=== PATIENT | female | born 1990 | race Caucasian/White ===

== ENCOUNTER 2016-12-01 04:02 | Inpatient (IN) | payer BC ==
[2016-12-01] VITALS (15 sets, daily range): BP systolic 73–117; BP diastolic 51–74; PULSE 101–116; RESP 16–25; TEMP 98.9; Ht 157.5 cm; Wt 70.5 kg
[~2016-12-01] VITALS: Ht 157.5 cm; Wt 70.5 kg
[2016-12-01] MEDS ORDERED: ONDANSETRON (ODT) 4 MG TAB ODT STA (04:19)
--- NOTE | 2016-12-01 04:29 | ERD ---
ER Documentation Chief Complaint Date/Time DATE: 12/01/16 TIME: 04:28 Chief Complaint Heroin Withdrawal HPI Cancel this dictation it was started in error ROS All systems reviewed and are negative except as per history of present illness. Medications Home Meds Active Scripts Ondansetron (Zofran Odt) 4 Mg Tab.rapdis, 4 MG PO Q6, #14 Prov:EULALIO DE PAZ DO 12/01/16 Allergies Allergies: Coded Allergies: No Known Allergy (Unverified , 12/01/16) Physical Exam Vitals Vital Signs Date Time Temp Pulse Resp B/P Pulse Ox O2 Delivery O2 Flow Rate FiO2 12/01/16 04:28 98.3 100 18 141/78 99 Room Air 12/01/16 04:08 98.3 103 18 141/78 97 Results 24 hrs Laboratory Tests Test 12/01/16 04:37 12/01/16 05:20 Bedside Glucose 276mg/dL Bedside Urine pH (LAB) 5.5 Bedside Urine Protein (LAB) 2+ Bedside Urine Glucose (UA) 0.1% Bedside Urine Ketones (LAB) 4+ Bedside Urine Blood Negative Bedside Urine Nitrite (LAB) Negative Bedside Urine Leukocyte Esterase (L Negative Current Medications Medications (Trade) Dose Ordered Sig/Fernando Route PRN Reason Start Time Stop Time Status Last Admin Dose Admin Trimethobenzamide HCl (Tigan) 200 mg ONCE ONCE IM 12/01/16 04:30 12/01/16 04:31 DC 12/01/16 04:25 Ondansetron HCl 4 mg 4 mg ONCE STAT ODT 12/01/16 04:19 12/01/16 04:20 DC 12/01/16 04:25 Sodium Chloride (NS) 1,000 ml @ 1,000 mls/hr Q1H STAT IV 12/01/16 05:58 12/01/16 06:57 12/01/16 06:30 Procedures/MDM Cancel this dictation it was started in error EULALIO DE PAZ DO Dec 01, 2016 04:29
[2016-12-01] MEDS ORDERED: TRIMETHOBENZAMIDE 100 MG/ML VIAL IM ONE (04:30)
[2016-12-01 05:17] LABS: URINE BLOOD (Dip) POC Negative (NEGATIVE)
[2016-12-01] MEDS ORDERED: ONDA4TAB11 PO (05:37)
[2016-12-01] MEDS ORDERED: SOD CHLORIDE 0.9% 1,000 ML IV STA ×2 (05:58→07:28)
[2016-12-01 06:36] LABS: ADD SCAN DIFF NO
[2016-12-01 06:39] LABS: BASOPHILS % 0.1 % (0.0-2.0); HEMATOCRIT 43.4 % (37.0-47.0); HEMOGLOBIN 14.4 g/dl (12.0-16.0); LYMPHOCYTES # 0.9 10^3/ul (0.8-2.9); LYMPHOCYTES % 12.1 % (15.0-51.0); MEAN CORPUSCULAR HEMOGLOBIN 30.3 pg (29.0-33.0); MEAN CORPUSCULAR HGB CONC 33.2 g/dl (32.0-37.0); MEAN CORPUSCULAR VOLUME 91.4 fl (82.0-101.0); MEAN PLATELET VOLUME 9.2 fl (7.4-10.4); MONOCYTE # 0.4 10^3/ul (0.3-0.9); MONOCYTES % 5.1 % (0.0-11.0); NEUTROPHIL # 5.8 10^3/ul (1.6-7.5); NEUTROPHILS % 81.3 % (39.0-77.0); PLATELET COUNT 253 10^3/UL (140-415); RED BLOOD COUNT 4.75 10^6/ul (4.20-5.40); RED CELL DISTRIBUTION WIDTH 14.9 % (11.5-14.5); WHITE BLOOD COUNT 7.1 10^3/ul (4.8-10.8)
[2016-12-01] MEDS ORDERED: METOCLOPRAMIDE 10 MG INJ IV ONE (07:00)
[2016-12-01 07:08] LABS: ALBUMIN 5.7 g/dl (3.3-4.9); ALBUMIN/GLOBULIN RATIO 1.46; BILIRUBIN,INDIRECT 0.4 mg/dl (0-1.1); BILIRUBIN,TOTAL 0.4 mg/dl (0.2-1.3); CALCIUM 10.3 mg/dl (8.4-10.2); CREATININE 0.88 mg/dl (0.44-1.00); POTASSIUM 4.9 mmol/L (3.5-5.1); TOTAL PROTEIN 9.6 g/dl (6.1-8.1)
[2016-12-01 07:17] LABS: ADD UMIC YES; UR ASCORBIC ACID NEGATIVE (NEGATIVE); UR BACTERIA FEW /HPF (NONE SEEN); UR BILIRUBIN (Dip) NEGATIVE (NEGATIVE); UR BLOOD (Dip) NEGATIVE (NEGATIVE); UR CLARITY SLIGHTLY CLOUDY (CLEAR); UR COLOR YELLOW (YELLOW); UR GLUCOSE (Dip) 3+ mg/dL (NEGATIVE); UR KETONES (Dip) 2+ mg/dL (NEGATIVE); UR LEUKOCYTE ESTERASE (Dip) NEGATIVE Leu/ul (NEGATIVE); UR NITRITE (Dip) NEGATIVE (NEGATIVE); UR RBC 1 /HPF (0-5); UR SPECIFIC GRAVITY (Dip) 1.018 (1.003-1.030); UR TOTAL PROTEIN (Dip) 2+ mg/dl (NEGATIVE); UR UROBILINOGEN (Dip) NEGATIVE (NEGATIVE)
[2016-12-01] MEDS ORDERED: INSULIN HUMAN REGULAR 100 UNIT in SOD CHLORIDE 0.9% 99 ML IV STA (07:28)
[2016-12-01] MEDS ORDERED: MAGNESIUM SULFATE 2 GM/50 ML 50 ML IVPB ONE (07:30)
--- NOTE | 2016-12-01 07:53 | ERA ---
ER Documentation Chief Complaint Date/Time DATE: 12/01/16 TIME: 07:49 Chief Complaint Heroin Withdrawal HPI Patient is a 26-year-old female who presents with gradual onset, intermittent vomiting for 1-1/2 days. She states that she is in detox from heroin, and has had withdrawal symptoms for the last day and a half since she stopped using heroin. She is in an inpatient facility currently. She reports feeling subjective fevers. She denies diarrhea. She denies cough, dysuria. She does not recall her last menstrual period. The patient is a type I diabetic. She states she has been taking her insulin. ROS All systems reviewed and are negative except as per history of present illness. Medications Home Meds Active Scripts Ondansetron (Zofran Odt) 4 Mg Tab.rapdis, 4 MG PO Q6, #14 Prov:EULALIO DE PAZ DO 12/01/16 Reported Medications Buprenorphine Hcl-Naloxone Hcl (Suboxone SL) 8-2 Mg Film, 1 FILM SL DAILY, FILM 12/01/16 Quetiapine Fumarate* (Seroquel*) 50 Mg Tablet, 50 MG PO TID, TAB 12/01/16 Clonidine Hcl* (Clonidine Hcl*) 0.2 Mg Tablet, 0.2 MG PO TID, TAB 12/01/16 Allergies Allergies: Coded Allergies: No Known Allergy (Unverified , 12/01/16) PMhx/Soc Past medical history: Diabetes mellitus Past surgical history: Abscess I&D Social history: Uses IV heroin and skin pops, denies other drugs or alcohol. Medical and Surgical Hx: pt denies Surgical Hx History of Surgery: No Hx Miscellaneous Medical Probl: Yes (DM) Hx Alcohol Use: Yes Hx Substance Use: Yes (HEROIN) Hx Tobacco Use: Yes Smoking Status: Current every day smoker FmHx Family History: No coronary disease, No diabetes Physical Exam Vitals Vital Signs Date Time Temp Pulse Resp B/P Pulse Ox O2 Delivery O2 Flow Rate FiO2 12/01/16 12:00 107 19 140/94 100 Room Air 12/01/16 11:00 115 20 136/79 100 Room Air 12/01/16 07:42 104 18 122/75 99 Room Air 12/01/16 04:28 98.3 100 18 141/78 99 Room Air 12/01/16 04:08 98.3 103 18 141/78 97 Physical Exam Const: Alert, appears uncomfortable Head: Atraumatic Eyes: Normal Conjunctiva, no pallor, no icterus ENT: Normal External Ears, Nose and Mouth. Tacky mucous membranes Neck: Full range of motion. No meningismus. Resp: Clear to auscultation bilaterally, no wheezes, no rales Cardio: Regular rate and rhythm, no murmurs Abd: Soft, non tender, non distended. Skin: No petechiae or rashes Back: No midline or flank tenderness Ext: No cyanosis, or edema Neur: Awake and alert, cranial nerves II through XII intact bilaterally, moves and feels 4 extremities appropriately Psych: Normal Mood and Affect, poorly communicative, slightly agitated Result Diagram: 12/01/16 0605 12/01/16 1211 Results 24 hrs Laboratory Tests Test 12/01/16 04:37 12/01/16 05:20 12/01/16 06:00 12/01/16 06:05 Bedside Glucose 276mg/dL Bedside Urine pH (LAB) 5.5 Bedside Urine Protein (LAB) 2+ Bedside Urine Glucose (UA) 0.1% Bedside Urine Ketones (LAB) 4+ Bedside Urine Blood Negative Bedside Urine Nitrite (LAB) Negative Bedside Urine Leukocyte Esterase (L Negative Urine Color YELLOW Urine Clarity SLIGHTLY CLOUDY Urine pH 5.0 Urine Specific [place] 1.018 Urine Ketones 2+mg/dL Urine Nitrite NEGATIVEmg/dL Urine Bilirubin NEGATIVEmg/dL Urine Urobilinogen NEGATIVEmg/dL Urine Leukocyte Esterase NEGATIVELeu/ul Urine Microscopic RBC 1/HPF Urine Microscopic WBC 3/HPF Urine Bacteria FEW/HPF Urine Hemoglobin NEGATIVEmg/dL Urine Glucose 3+mg/dL Urine Total Protein 2+mg/dl Urine Opiates Screen Positive Urine Barbiturates Positive Urine Amphetamines Screen Negative Urine Benzodiazepines Screen Negative Urine Cocaine Screen Negative Urine Cannabinoids Negative White Blood Count 7.110^3/ul Red Blood Count 4.7510^6/ul Hemoglobin 14.4g/dl Hematocrit 43.4% Mean Corpuscular Volume 91.4fl Mean Corpuscular Hemoglobin 30.3pg Mean Corpuscular Hemoglobin Concent 33.2g/dl Red Cell Distribution Width 14.9% Platelet Count 86866^3/UL Mean Platelet Volume 9.2fl Neutrophils % 81.3% Lymphocytes % 12.1% Monocytes % 5.1% Eosinophils % 0.0% Basophils % 0.1% Nucleated Red Blood Cells % 0.0/100WBC Neutrophils # 5.810^3/ul Lymphocytes # 0.910^3/ul Monocytes # 0.410^3/ul Eosinophils # 0.010^3/ul Basophils # 0.010^3/ul Nucleated Red Blood Cells # 0.010^3/ul Clumped Platelets 2+ Giant Platelets RARE Urine Test NEGATIVE Sodium Level 141mmol/L Potassium Level 4.9mmol/L Chloride Level 96mmol/L Carbon Dioxide Level 18mmol/L Anion Gap 32 Blood Urea Nitrogen 27mg/dl Creatinine 0.88mg/dl Glucose Level 347mg/dl Hemoglobin A1c 8.7% Lactic Acid Level 2.2mmol/L Calcium Level 10.3mg/dl Phosphorus Level 4.5mg/dl Total Bilirubin 0.4mg/dl Direct Bilirubin 0.00mg/dl Indirect Bilirubin 0.4mg/dl Acetone Level (Chemistry) Aspartate Amino Transf (AST/SGOT) 40IU/L Alanine Aminotransferase (ALT/SGPT) 44IU/L Alkaline Phosphatase 204IU/L Total Protein 9.6g/dl Albumin 5.7g/dl Globulin 3.90g/dl Albumin/Globulin Ratio 1.46 Lipase 23U/L Test 12/01/16 10:17 12/01/16 12:11 12/01/16 12:39 12/01/16 13:35 Bedside Glucose 379mg/dL 322mg/dL 270mg/dL Sodium Level 141mmol/L Potassium Level 6.0mmol/L Chloride Level 103mmol/L Carbon Dioxide Level 12mmol/L Anion Gap 32 Blood Urea Nitrogen 24mg/dl Creatinine 0.83mg/dl Glucose Level 365mg/dl Calcium Level 9.3mg/dl Current Medications Medications (Trade) Dose Ordered Sig/Fernando Route PRN Reason Start Time Stop Time Status Last Admin Dose Admin Trimethobenzamide HCl (Tigan) 200 mg ONCE ONCE IM 12/01/16 04:30 12/01/16 04:31 DC 12/01/16 04:25 Ondansetron HCl 4 mg 4 mg ONCE STAT ODT 12/01/16 04:19 12/01/16 04:20 DC 12/01/16 04:25 Sodium Chloride (NS) 1,000 ml @ 1,000 mls/hr Q1H STAT IV 12/01/16 05:58 12/01/16 06:57 DC 12/01/16 06:30 Metoclopramide HCl 10 mg 10 mg ONCE ONCE IV 12/01/16 07:00 12/01/16 07:01 DC 12/01/16 06:49 Sodium Chloride 1,000 ml @ 1,000 mls/hr Q1H STAT IV 12/01/16 07:28 12/01/16 08:27 DC 12/01/16 09:02 Insulin Human Regular 100 unit/ Sodium Chloride 100 ml @ 0 mls/hr TITRATE STAT IV 12/01/16 07:28 12/01/16 07:30 DC 12/01/16 10:24 Magnesium Sulfate (Magnesium Sulfate 2 Gm/50 ml) 50 ml @ 25 mls/hr ONCE ONCE IVPB 12/01/16 07:30 12/01/16 09:29 DC 12/01/16 11:29 Lorazepam (Ativan) 2 mg ONCE ONCE IV 12/01/16 09:00 12/01/16 09:01 DC 12/01/16 09:00 Ketorolac Tromethamine 15 mg 15 mg ONCE STAT IV 12/01/16 08:43 12/01/16 08:45 DC 12/01/16 09:02 Potassium Chloride/Sodium Chloride (KCl/NS) 110 ml @ 55 mls/hr ONCE ONCE IVPB 12/01/16 09:00 12/01/16 10:59 DC Famotidine (Pepcid Iv) 20 mg ONCE ONCE IV 12/01/16 09:00 12/01/16 09:01 DC 12/01/16 09:02 Ondansetron HCl (Zofran Inj) 4 mg Q6H PRN IV NAUSEA AND/OR VOMITING 12/01/16 10:30 Albuterol/ Ipratropium (Duoneb) 3 ml Q2H RESP THERAPY PRN NEB SHORTNESS OF BREATH 12/01/16 10:30 Albuterol (Proventil 0.083% (Neb)) 2.5 mg Q2H RESP THERAPY PRN NEB SHORTNESS OF BREATH 12/01/16 10:30 Morphine Sulfate (morphine) 2 mg Q4H PRN IV PAIN LEVEL 7-10 12/01/16 10:30 Lorazepam (Ativan) 1 mg Q2H PRN IV ANXIETY 12/01/16 10:30 Dextrose (D50w Syringe) 50 ml Q15M PRN IV For BS 50 or less 12/01/16 10:30 Dextrose 25 ml 25 ml Q15M PRN IV BS between 50-70 12/01/16 10:30 Sodium Chloride 1,000 ml @ 1,000 mls/hr Q1H IV 12/01/16 10:21 12/01/16 11:20 DC 12/01/16 12:36 Lactated Ringer's 1,000 ml @ 1,000 mls/hr Q1H IV 12/01/16 11:21 12/01/16 12:20 DC Potassium Chloride 20 meq/ Sodium Chloride 1,010 ml @ 500 mls/hr Q2H2M IV 12/01/16 12:21 12/01/16 14:20 DC 12/01/16 11:39 Insulin Human Regular/Sodium Chloride (Novolin-R/NS) 100 ml @ 7.25 mls/hr DKA PROTOCOL IV 12/01/16 10:30 Diagnostic Test (Pha) (Accu-Chek) 1 ea Q1H XX 12/01/16 10:30 Miscellaneous Information (* Miscellaneous Pharmacy Order) HYPOGLYCEMIA TREATMENT HYPOGLYCEM PROTOCOL PRN XX Hypoglycemia (BS < 70) 12/01/16 10:30 Insulin Glargine 32 unit 32 unit QHS SC 12/01/16 21:00 UNV Potassium Chloride (KCl 10 MEQ/50 ML SW) 50 ml @ 50 mls/hr K PROTOCOL PRN IVPB PENDING LAB VALUE 12/01/16 13:00 UNV Procedures/MDM MDM: Patient is a 26-year-old female who presents to the ER with vomiting for 1- 1/2 days after she stopped using heroin. She is in a rehab facility. Patient is a type I diabetic, and was found to have acidosis and 4+ ketones in her urine , consistent with DKA. The patient was started on IV fluids. Her initial potassium level was normal. She was started on an insulin drip. She was given potassium and magnesium repletion. She was given multiple doses of antiemetics as well as treatment for her symptoms of opiate withdrawal. She has no signs of infection, no signs of respiratory distress. On subsequent labs, the patient had become more acidotic and her has elevated potassium. Her IV potassium drip was stopped. Her insulin drip is being titrated based upon protocol. She will be admitted to the ICU for further treatment. Critical Care Time: 40 minutes Treatments/Evaluations: Close monitoring and treatment of unstable vital signs, cardiorespiratory, and neurologic status, while maintaining tight balance of fluid, respiratory, and cardiac interventions. This time includes discussing the case with the patient, including extensive discussion of the importance of admission during multiple attempts of the patient to sign out AMA. This time does not include all procedures stated elsewhere in this record. This time also includes reviewing old records, labs and radiological studies. This time includes examining and re-examining the patient. Additionally, this time also includes arranging care with admitting and consulting physicians. Departure Diagnosis: Primary Impression: Diabetic ketoacidosis Qualified Code: E10.10 - Diabetic ketoacidosis without coma associated with type 1 diabetes mellitus Additional Impressions: Heroin withdrawal Nausea & vomiting Qualified Code: R11.2 - Non-intractable vomiting with nausea, unspecified vomiting type Condition: Fair Patient Instructions: Hyperglycemia (High Blood Sugar), Nausea and Vomiting- Adult Referrals: [facility] YOU HAVE RECEIVED A MEDICAL SCREENING EXAM AND THE RESULTS INDICATE THAT YOU DO NOT HAVE A CONDITION THAT REQUIRES URGENT TREATMENT IN THE EMERGENCY DEPARTMENT. FURTHER EVALUATION AND TREATMENT OF YOUR CONDITION CAN WAIT UNTIL YOU ARE SEEN IN YOUR DOCTORS OFFICE WITHIN THE NEXT 1-2 DAYS. IT IS YOUR RESPONSIBILITY TO MAKE AN APPOINTMENT FOR FOLOW-UP CARE. IF YOU HAVE A PRIMARY DOCTOR --you should call your primary doctor and schedule an appointment IF YOU DO NOT HAVE A PRIMARY DOCTOR YOU CAN CALL OUR PHYSICIAN REFERRAL HOTLINE AT IF YOU CAN NOT AFFORD TO SEE A PHYSICIAN YOU CAN CHOSE FROM THE FOLLOWING [facility] [address] [facility] [address] [facility] [address] [facility] [address] [facility] [address] [facility]. [facility]. [address] Additional Instructions: Call your primary care doctor TOMORROW for an appointment during the next 1-2 days.See the doctor sooner or return here if your condition worsens before your appointment time. MANISH MILIAN MD Dec 01, 2016 07:53
[2016-12-01] MEDS ORDERED: KETOROLAC 15 MG INJ IV STA (08:43)
[2016-12-01] MEDS ORDERED: LORAZEPAM 2 MG INJ IV ONE (09:00)
[2016-12-01] MEDS ORDERED: POTASSIUM CHLORIDE 20 MEQ in SOD CHLORIDE 0.9% 100 ML IVPB ONE (09:00)
[2016-12-01] MEDS ORDERED: FAMOTIDINE 20 MG INJ IV ONE (09:00)
[2016-12-01 10:11] LABS: PLATELETS CLUMPS 2+
[2016-12-01] MEDS ORDERED: SOD CHLORIDE 0.9% 1,000 ML IV SCH (10:21)
[2016-12-01] MEDS ORDERED: ALBUTEROL/IPRATROPIUM (NEB) 3 ML AMP NEB PRN (10:30)
[2016-12-01] MEDS ORDERED: DEXTROSE 50% 50 ML SYRINGE IV PRN ×4 (10:30→22:00)
[2016-12-01] MEDS ORDERED: INSULIN HUMAN REGULAR 100 UNIT in SOD CHLORIDE 0.9% 99 ML IV SCH (10:30)
[2016-12-01] MEDS ORDERED: ALBUTEROL 0.083% (NEB) 2.5 MG/3 ML AMP NEB PRN (10:30)
[2016-12-01] MEDS ORDERED: HYPOGLYCEMIA TREATMENT XX PRN (10:30)
[2016-12-01] MEDS ORDERED: ONDANSETRON 4 MG INJ IV PRN (10:30)
[2016-12-01] MEDS ORDERED: LACTATED RINGER'S 1,000 ML IV SCH (11:21)
[2016-12-01] MEDS: ACCU-CHEK XX SCH ×14 (11:30→23:55)
[2016-12-01] MEDS ORDERED: POTASSIUM CHLORIDE 20 MEQ in SOD CHLORIDE 0.9% 1,000 ML IV SCH (12:21)
[2016-12-01] MEDS ORDERED: CLON0.2T5 PO (12:25)
[2016-12-01] MEDS ORDERED: QUET50TA16 PO (12:26)
[2016-12-01] MEDS ORDERED: BUPR1FIL3 SL (12:27)
[2016-12-01 12:42] LABS: CALCIUM 9.3 mg/dl (8.4-10.2); CREATININE 0.83 mg/dl (0.44-1.00)
[2016-12-01 12:47] LABS: BARBITURATES Positive (NEGATIVE); CANNABINOIDS Negative (NEGATIVE)
[2016-12-01 12:56] LABS: BENZODIAZEPINES Negative (NEGATIVE); COCAINE Negative (NEGATIVE); OPIATES Positive (NEGATIVE)
--- NOTE | 2016-12-01 12:56 | CONS ---
Date/Time of Note Date/Time of Note DATE: 12/01/16 TIME: 12:51 Assessment/Plan Assessment/Plan Problems: (1) Diabetes mellitus type 1 Status: Chronic Comment: We will limited database with her do not appear to be any clear-cut long-term complications of this. She will be treated with a standard DKA protocol. Please note given her history of chemical dependency upon discharge she should be prescribed insulin pens and not vials and syringes Qualifiers: Qualified Code: E10.9 - Type 1 diabetes mellitus without complication (2) DKA, type 1 Status: Acute Comment: This is very mild DKA. I suspect were dealing a bit more with the sequela I withdrawal of narcotics. In addition she may have gotten her hands on some other stuff. For now she will be on standard DKA protocol be followed. We will get her started on her long-acting insulin tonight so we can get her off the insulin drip by morning Qualifiers: Qualified Code: E10.10 - Type 1 diabetes mellitus with ketoacidosis without coma (3) Heroin dependence Status: Chronic Comment: Watch for formalized withdrawal symptoms Consultation Date/Type/Reason Admit Date/Time 12/01/2016 Date of Consultation: Dec 01, 2016 Type of Consultation: Endocrinology Reason for Consultation Diabetic ketoacidosis; type 1 diabetes mellitus since the age of 8; polydrug dependency Referring Provider: HEATH PRICE of Present Illness 26-year-old female. She apparently came from an acute drug detox facility. She states that she was actively using heroin until 2 days ago. Now she was admitted to the facility either yesterday or today. Patient is not able to give a coherent meaningful history. She denies any specific fever chills or sweats or inciting events she denies missing her insulin. The only major stressor she has had is the acute withdrawal from drugs. At times communicative but other krause minimally. Constitutional: no complaints (Denies fevers chills or sweats) ENT: no complaints Respiratory: no complaints Cardiovascular: no complaints Gastrointestinal: no complaints Genitourinary: no complaints Musculoskeletal: no complaints Skin: no complaints Past Medical History Diabetes mellitus type 1 since the age of 8; opiate dependency and addiction Past Surgical History Past Surgical Hx: no surgical history Family History Significant Family History: no pertinent family hx Social History Smoking Status: Current every day smoker Drug Use: heroin Other Social History Recently in [facility] has been in a drug detox facility. Exam/Review of Systems Vital Signs Vitals Vital Signs Date Time Temp Pulse Resp B/P Pulse Ox O2 Delivery O2 Flow Rate FiO2 12/01/16 12:00 107 19 140/94 100 Room Air 12/01/16 04:28 98.3 Exam Arousable with difficulty non-excellent historian. She appears to be under the influence Eyes: EOMI, nl conjunctiva, nl lids, nl sclera ENMT: mucosa pink and moist, nl external ears & nose, nl lips & teeth, nl nasal mucosa & septum Neck: non-tender, supple Respiratory: clear to auscultation, normal air movement Cardiovascular: nl pulses, regular rate and rhythm Gastrointestinal: nl liver, spleen, non-tender, soft Results Result Diagram: 12/01/1660412/01/16604 Results 24 hrs Laboratory Tests Test 12/01/16 04:37 12/01/16 05:20 12/01/16 06:00 12/01/16 06:05 Bedside Glucose 276 H Bedside Urine pH (LAB) 5.5 Bedside Urine Protein (LAB) 2+ H Bedside Urine Glucose (UA) 0.1% H Bedside Urine Ketones (LAB) 4+ H Bedside Urine Blood Negative Bedside Urine Nitrite (LAB) Negative Bedside Urine Leukocyte Esterase (L Negative Urine Color YELLOW Urine Clarity SLIGHTLY CLOUDY A Urine pH 5.0 Urine Specific [place] 1.018 Urine Ketones 2+ H Urine Nitrite NEGATIVE Urine Bilirubin NEGATIVE Urine Urobilinogen NEGATIVE Urine Leukocyte Esterase NEGATIVE Urine Microscopic RBC 1 Urine Microscopic WBC 3 Urine Bacteria FEW A Urine Hemoglobin NEGATIVE Urine Glucose 3+ H Urine Total Protein 2+ H White Blood Count 7.1 Red Blood Count 4.75 Hemoglobin 14.4 Hematocrit 43.4 Mean Corpuscular Volume 91.4 Mean Corpuscular Hemoglobin 30.3 Mean Corpuscular Hemoglobin Concent 33.2 Red Cell Distribution Width 14.9 H Platelet Count 253 Mean Platelet Volume 9.2 Neutrophils % 81.3 H Lymphocytes % 12.1 L Monocytes % 5.1 Eosinophils % 0.0 Basophils % 0.1 Nucleated Red Blood Cells % 0.0 Neutrophils # 5.8 Lymphocytes # 0.9 Monocytes # 0.4 Eosinophils # 0.0 Basophils # 0.0 Nucleated Red Blood Cells # 0.0 Clumped Platelets 2+ Giant Platelets RARE Urine Test NEGATIVE Sodium Level 141 Potassium Level 4.9 Chloride Level 96 L Carbon Dioxide Level 18 L Anion Gap 32 H Blood Urea Nitrogen 27 H Creatinine 0.88 Glucose Level 347 H Hemoglobin A1c 8.7 H Lactic Acid Level 2.2 Calcium Level 10.3 H Phosphorus Level 4.5 Total Bilirubin 0.4 Direct Bilirubin 0.00 Indirect Bilirubin 0.4 Acetone Level (Chemistry) POSITIVE 1:2 H Aspartate Amino Transf (AST/SGOT) 40 Alanine Aminotransferase (ALT/SGPT) 44 Alkaline Phosphatase 204 H Total Protein 9.6 H Albumin 5.7 H Globulin 3.90 H Albumin/Globulin Ratio 1.46 Lipase 23 Test 12/01/16 10:17 12/01/16 12:39 Bedside Glucose 379 H 322 H Medications Medications Current Medications Ondansetron HCl (Zofran Inj) 4 mg Q6H PRN IV NAUSEA AND/OR VOMITING; Start at 10:30 Morphine Sulfate (morphine) 2 mg Q4H PRN IV PAIN LEVEL 7-10; Start 12/01/16 at 10:30 Lorazepam (Ativan) 1 mg Q2H PRN IV ANXIETY; Start 12/01/16 at 10:30 Dextrose (D50w Syringe) 50 ml Q15M PRN IV For BS 50 or less; Start 12/01/16 at 10:30 Dextrose 25 ml 25 ml Q15M PRN IV BS between 50-70; Start 12/01/16 at 10:30 Potassium Chloride/Sodium Chloride (KCl/NS) 1,010 ml @ 500 mls/hr Q2H2M IV Last administered on 12/01/16t 11:39; Admin Dose 500 MLS/HR; Start 12/01/16 at 12:21; Stop 12/01/16 at 14:20 Diagnostic Test (Pha) (Accu-Chek) 1 ea Q1H XX ; Start 12/01/16 at 10:30 EULALIO LERNER MD Dec 01, 2016 12:56
[2016-12-01 16:10] LABS: CALCIUM 8.4 mg/dl (8.4-10.2); CREATININE 0.61 mg/dl (0.44-1.00); POTASSIUM 4.2 mmol/L (3.5-5.1)
[2016-12-01] MEDS: LORAZEPAM 2 MG INJ IV PRN ×2 (16:49→18:48)
[2016-12-01] MEDS: DEXTROSE 5%-LR 1,000 ML IV SCH (19:26)
[2016-12-01] MEDS: morphine 2 MG INJ IV PRN (20:00)
[2016-12-01 21:00] LABS: ALBUMIN 4.3 g/dl (3.3-4.9); ALBUMIN/GLOBULIN RATIO 1.48; BILIRUBIN,INDIRECT 0.2 mg/dl (0-1.1); BILIRUBIN,TOTAL 0.2 mg/dl (0.2-1.3); CALCIUM 9.1 mg/dl (8.4-10.2); CREATININE 0.55 mg/dl (0.44-1.00); POTASSIUM 3.2 mmol/L (3.5-5.1); TOTAL PROTEIN 7.2 g/dl (6.1-8.1)
[2016-12-01] MEDS ORDERED: INSULIN GLARGINE [LANtus] 3 ML PEN SC SCH (21:00)
[2016-12-01] MEDS: INSULIN GLARGINE [LANtus] 3 ML PEN SC SCH (21:54)
[2016-12-01] MEDS ORDERED: GLUCOSE GEL 15 GRAM TUBE PO PRN ×2 (22:00)
[2016-12-01] MEDS ORDERED: METHADONE 10 MG TAB PO SCH (22:00)
[2016-12-01] MEDS ORDERED: GLUCOSE GEL 15 GRAM TUBE BUCCAL PRN (22:00)
[2016-12-01] MEDS ORDERED: GLUCAGON 1 MG INJ IM PRN (22:00)
[2016-12-01] MEDS: POTASSIUM CHLORIDE 50 ML IVPB PRN (22:53)
[2016-12-01] MEDS: HYDROmorphONE 1 MG/ML SYG IV PRN (22:54)
--- NOTE | 2016-12-01 23:44 | HP ---
DATE OF ADMISSION: 12/01/2016 TIME SEEN: 4:00 a.m. CHIEF COMPLAINT: Vomiting, anxiety and generalized weakness. HISTORY OF PRESENT ILLNESS: The patient is a 26-year-old female with a history of diabetes and hero in abuse, currently was at a detox facility for 1 day. The patient presented with above-stated leia f complaint. She is a very poor historian, and she is lethargic and at times requiring constant sti mulation to keep her awake. When she is awake, however, she is alert and oriented x3. She states t hat she had been at the detox facility for heroin use for 1 day when she experienced those symptoms, and as such, she came to the ER for evaluation. When she presented to the ER, she was tachycardic, and her laboratory values show ____, low bicarbon ate 18, anion gap of 32 with positive serum ketones. The patient was started on DKA protocol. She actually has already been seen by Dr. Pelayo from Endocrinology. She denies any chest pain. However , she has had generalized weakness and pain. She is also complaining about being hungry. At one po int, she was going to leave against medical advice, but she decided to stay. REVIEW OF SYSTEMS: A 12-point review of systems was performed, negative except as mentioned in HPI. PAST MEDICAL HISTORY: As per HPI. SOCIAL HISTORY: Positive for heroin use and tobacco. ALLERGIES: NO KNOWN DRUG ALLERGIES. HOME MEDICATIONS: See reconciled medications. PHYSICAL EXAMINATION: GENERAL: The patient is lying on a gurney. She appears lethargic and sleepy, requiring constant st imulation to keep her awake. HEENT: No obvious head deformity. There is, however, a small erythematous macular rash on her face . CARDIOVASCULAR: Tachycardic with regular rhythm. LUNGS: Clear anteriorly. ABDOMEN: Soft, nontender. Positive bowel sounds. EXTREMITIES: No edema. LABORATORY: Pertinent positive labs ____ HPI. IMPRESSION: 1. Mild diabetic ketoacidosis. 2. ____ metabolic acidosis secondary to above. 3. Hyperkalemia. PLAN: The patient will be admitted to the ICU with DKA protocol. She might be transitioned to subc utaneous insulin later on tonight depending on her lab results. I will start her on methadone. She will receive also clonidine. Will correct electrolytes as needed. Will follow up endocrinology re commendations. Further workup and management per clinical course. Dictated By: GEOVANNA SEVERINO/JAIME Conf#: [id number] DID#: [id number]
[2016-12-02] VITALS (16 sets, daily range): BP systolic 63–141; BP diastolic 25–96; PULSE 78–103; RESP 15–22
[2016-12-02] MEDS: POTASSIUM CHLORIDE 50 ML IVPB PRN ×2 (00:30→01:59)
[2016-12-02] MEDS: ACCU-CHEK XX SCH ×9 (00:33→20:05)
[2016-12-02] MEDS ORDERED: ACCU-CHEK XX SCH (02:00)
[2016-12-02] MEDS: DEXTROSE 5%-LR 1,000 ML IV SCH ×2 (03:42→05:41)
[2016-12-02] MEDS: HYDROmorphONE 1 MG/ML SYG IV PRN ×5 (04:26→21:33)
[2016-12-02] MEDS: LORAZEPAM 2 MG INJ IV PRN ×4 (05:41→21:49)
[2016-12-02] MEDS: INSULIN ASPART [NOVOLOG] 3 ML PEN SC SCH ×7 (07:35→21:00)
[2016-12-02] MEDS ORDERED: INSULIN ASPART [NOVOLOG] 3 ML PEN SC SCH ×2 (07:35→17:35)
--- NOTE | 2016-12-02 08:19 | CONS ---
Date/Time of Note Date/Time of Note DATE: 12/02/16 TIME: 08:16 Assessment/Plan Assessment/Plan Chief Complaint/Hosp Course 26-year-old female. She apparently came from an acute drug detox facility on December 01, 2016. Problems: (1) Hepatitis C antibody positive in blood Status: Acute Comment: Viral titers are pending at this time. Blood and body fluid precaution (2) DKA, type 1 Status: Resolved Comment: The DKA is cleared and she is ready go out on her insulin regimen. Please note she should be given insulin pens no syringes or vials Qualifiers: Diabetes mellitus complication detail: without coma Qualified Code: E10.10 - Type 1 diabetes mellitus with ketoacidosis without coma (3) Diabetes mellitus type 1 Status: Chronic Comment: As above ready for non-ICU care and actually ready to return to detox. Please note the detox center must have her insulin and must not withhold this Qualifiers: Diabetes mellitus complication status: without complication Qualified Code : E10.9 - Type 1 diabetes mellitus without complication (4) Heroin dependence Status: Chronic Comment: She is actively in withdrawal at this time Consultation Date/Type/Reason Admit Date/Time Dec 01, 2016 at 10:25 Initial Consult Date 12/01/16 Type of Consultation: Endocrinology Reason for Consultation Diabetes mellitus type 1 with mild DKA; acute heroin withdrawal syndrome; hepatitis C positive Referring Provider: HEATH PRICE 24 HR Interval Summary Free Text/Dictation Patient is feeling better this morning. She identifies that she did miss doses of insulin. Constitutional: no complaints (No fevers chills or sweats) Detailed Summary Respiratory: no complaints Cardiovascular: no complaints Gastrointestinal: no complaints Musculoskeletal: back pain Exam/Review of Systems Vital Signs Vitals Vital Signs Date Time Temp Pulse Resp B/P Pulse Ox O2 Delivery O2 Flow Rate FiO2 12/02/16 08:00 98.5 87 21 141/96 100 Room Air Intake and Output 12/01/16 12/01/16 12/02/16 15:00 23:00 07:00 Intake Total 3050 ml 1777.4 ml 654 ml Output Total 1000 ml Balance 3050 ml 777.4 ml 654 ml Exam For more awake and alert this morning Constitutional: alert, oriented Neck: non-tender, supple Respiratory: clear to auscultation, normal air movement Cardiovascular: nl pulses, regular rate and rhythm Gastrointestinal: nl liver, spleen, non-tender, soft Results Result Diagram: 12/01/16 0605 12/01/16 2030 Results 24 hrs Laboratory Tests Test 12/01/16 10:17 12/01/16 12:11 12/01/16 12:39 12/01/16 13:35 Bedside Glucose 379 H 322 H 270 H Sodium Level 141 Potassium Level 6.0 H Chloride Level 103 Carbon Dioxide Level 12 L Anion Gap 32 H Blood Urea Nitrogen 24 H Creatinine 0.83 Glucose Level 365 H Calcium Level 9.3 Test 12/01/16 14:28 12/01/16 15:00 12/01/16 15:52 12/01/16 16:23 Bedside Glucose 251 H 325 H 336 H Sodium Level 129 L Potassium Level 4.2 Chloride Level 104 Carbon Dioxide Level 12 L Anion Gap 17 #H Blood Urea Nitrogen 19 Creatinine 0.61 Glucose Level 337 H Calcium Level 8.4 Hepatitis B Surface Antigen NEGATIVE Hepatitis C Antibody REACTIVE H Test 12/01/16 17:24 12/01/16 18:33 12/01/16 19:43 12/01/16 20:30 Bedside Glucose 238 H 158 109 Sodium Level 131 L Potassium Level 3.2 L Chloride Level 104 Carbon Dioxide Level 20 L Anion Gap 10 # Blood Urea Nitrogen 16 Creatinine 0.55 Glucose Level 69 #L Calcium Level 9.1 Total Bilirubin 0.2 Direct Bilirubin 0.00 Indirect Bilirubin 0.2 Aspartate Amino Transf (AST/SGOT) 32 Alanine Aminotransferase (ALT/SGPT) 34 Alkaline Phosphatase 125 H Total Protein 7.2 # Albumin 4.3 # Globulin 2.90 Albumin/Globulin Ratio 1.48 Test 12/01/16 20:34 12/01/16 21:07 12/01/16 21:31 12/02/16 00:26 Bedside Glucose 65 L 110 96 29 *L Test 12/02/16 00:47 12/02/16 01:03 12/02/16 05:23 Bedside Glucose 154 152 Phosphorus Level 2.1 #L Medications Medications Current Medications Ondansetron HCl (Zofran Inj) 4 mg Q6H PRN IV NAUSEA AND/OR VOMITING Last administered on 12/01/16t 18:48; Admin Dose 4 MG; Start 12/01/16 at 10:30 Morphine Sulfate (morphine) 2 mg Q4H PRN IV PAIN LEVEL 7-10 Last administered on 12/01/16 20:00; Admin Dose 2 MG; Start 12/01/16 at 10:30 Lorazepam (Ativan) 1 mg Q2H PRN IV ANXIETY Last administered on 12/02/16 05:41 ; Admin Dose 1 MG; Start 12/01/16 at 10:30 Dextrose (D50w Syringe) 50 ml Q15M PRN IV For BS 50 or less Last administered on 12/02/16 00:29; Admin Dose 50 ML; Start 12/01/16 at 10:30 Dextrose 25 ml 25 ml Q15M PRN IV BS between 50-70 Last administered on 20:43; Admin Dose 25 ML; Start 12/01/16 at 10:30 Dextrose/Lactated Ringer's (D5-Lr) 1,000 ml @ 150 mls/hr Q6H40M IV Last administered on 12/02/16 05:41; Admin Dose 150 MLS/HR; Start 12/01/16 at 19:00 Hydromorphone HCl (Dilaudid) 1 mg Q4H PRN IV PAIN Last administered on 04:26; Admin Dose 1 MG; Start 12/01/16 at 20:30 Methadone HCl (Methadone) 20 mg Q8 PO ; Start 12/01/16 at 22:00; Status UNV Clonidine (Catapres) 0.1 mg Q6H PRN PO sbp > 160; Start 12/01/16 at 20:30 Diagnostic Test (Pha) (Accu-Chek) 1 ea 02 XX ; Start 12/02/16 at 02:00 Insulin Glargine (Lantus) 30 unit QHS SC Last administered on 12/01/16 21:54; Admin Dose 30 UNIT; Start 12/01/16 at 22:00 Miscellaneous Information 1 ea NOTE XX ; Start 12/01/16 at 22:00 Glucose (Glutose) 15 gm Q15M PRN PO DECREASED GLUCOSE; Start 12/01/16 at 22:00 Glucose (Glutose) 22.5 gm Q15M PRN PO DECREASED GLUCOSE; Start 12/01/16 at 22: 00 Glucagon (Glucagen) 1 mg Q15M PRN IM DECREASED GLUCOSE; Start 12/01/16 at 22:00 EULALIO LERNER MD Dec 02, 2016 08:19
[2016-12-02 08:57] LABS: CALCIUM 8.9 mg/dl (8.4-10.2); CREATININE 0.47 mg/dl (0.44-1.00); POTASSIUM 3.9 mmol/L (3.5-5.1)
--- NOTE | 2016-12-02 10:10 | PN ---
Date/Time of Note Date/Time of Note DATE: 12/02/16 TIME: 10:05 Assessment/Plan VTE Prophylaxis VTE Prophylaxis Intervention: SCD's Lines/Catheters IV [facility] Type [facility] Peripheral IV Urinary Cath still in place: No Assessment/Plan Chief Complaint/Hosp Course IMPRESSION: 1. Diabetic ketoacidosis. Status post IV fluid and insulin drip Resolved, staff air defense officer consulted 2. History of heroin abuse On Suboxone, need to verify the dosage 3. Hyperkalemia. Secondary to #1 resolved Transferred to telemetry floor Further workup and management per clinical course. Problems: Subjective 24 Hr Interval Summary Free Text/Dictation Patient is awake alert and oriented Denies of any chest pain or shortness of breath She has been able to tolerate her oral intake Denies of any nausea vomiting Exam/Review of Systems Vital Signs Vitals Vital Signs Date Time Temp Pulse Resp B/P Pulse Ox O2 Delivery O2 Flow Rate FiO2 12/02/16 08:00 98.5 87 21 141/96 100 Room Air Intake and Output 12/01/16 12/01/16 12/02/16 15:00 23:00 07:00 Intake Total 3050 ml 1777.4 ml 654 ml Output Total 1000 ml Balance 3050 ml 777.4 ml 654 ml Exam General: The patient is well-developed, Not in acute distress. HEENT: Atraumatic, normocephalic. The pupils are equal and round . Neck: Supple with full range of motion. Chest: Normal expansion of the thorax during inspiration Lungs: Clear to auscultation bilaterally Heart: Normal S1-S2, Regular rhythm and rate. Abdomen: Soft , nontender, nondistended , bowel sounds are present. Extremities: Normal to inspection, no edema no cyanosis Neurologic: Normal mental status,The patient is awake, alert and oriented . Results Result Diagram: 12/01/16 0605 12/02/16 0530 Results 24 hrs Laboratory Tests Test 12/01/16 10:17 12/01/16 12:11 12/01/16 12:39 12/01/16 13:35 Bedside Glucose 379 H 322 H 270 H Sodium Level 141 Potassium Level 6.0 H Chloride Level 103 Carbon Dioxide Level 12 L Anion Gap 32 H Blood Urea Nitrogen 24 H Creatinine 0.83 Glucose Level 365 H Calcium Level 9.3 Test 12/01/16 14:28 12/01/16 15:00 12/01/16 15:52 12/01/16 16:23 Bedside Glucose 251 H 325 H 336 H Sodium Level 129 L Potassium Level 4.2 Chloride Level 104 Carbon Dioxide Level 12 L Anion Gap 17 #H Blood Urea Nitrogen 19 Creatinine 0.61 Glucose Level 337 H Calcium Level 8.4 Hepatitis B Surface Antigen NEGATIVE Hepatitis C Antibody REACTIVE H Test 12/01/16 17:24 12/01/16 18:33 12/01/16 19:43 12/01/16 20:30 Bedside Glucose 238 H 158 109 Sodium Level 131 L Potassium Level 3.2 L Chloride Level 104 Carbon Dioxide Level 20 L Anion Gap 10 # Blood Urea Nitrogen 16 Creatinine 0.55 Glucose Level 69 #L Calcium Level 9.1 Total Bilirubin 0.2 Direct Bilirubin 0.00 Indirect Bilirubin 0.2 Aspartate Amino Transf (AST/SGOT) 32 Alanine Aminotransferase (ALT/SGPT) 34 Alkaline Phosphatase 125 H Total Protein 7.2 # Albumin 4.3 # Globulin 2.90 Albumin/Globulin Ratio 1.48 Test 12/01/16 20:34 12/01/16 21:07 12/01/16 21:31 12/02/16 00:26 Bedside Glucose 65 L 110 96 29 *L Test 12/02/16 00:47 12/02/16 01:03 12/02/16 05:23 12/02/16 05:30 Bedside Glucose 154 152 Phosphorus Level 2.1 #L Sodium Level 138 Potassium Level 3.9 Chloride Level 111 H Carbon Dioxide Level 18 L Anion Gap 13 Blood Urea Nitrogen 13 Creatinine 0.47 Glucose Level 82 Calcium Level 8.9 Test 12/02/16 08:44 Bedside Glucose 101 Medications Medications Current Medications Ondansetron HCl (Zofran Inj) 4 mg Q6H PRN IV NAUSEA AND/OR VOMITING Last administered on 12/01/16 18:48; Admin Dose 4 MG; Start 12/01/16 at 10:30 Morphine Sulfate (morphine) 2 mg Q4H PRN IV PAIN LEVEL 7-10 Last administered on 12/01/16 20:00; Admin Dose 2 MG; Start 12/01/16 at 10:30 Lorazepam (Ativan) 1 mg Q2H PRN IV ANXIETY Last administered on 12/02/16 08:32 ; Admin Dose 1 MG; Start 12/01/16 at 10:30 Dextrose (D50w Syringe) 50 ml Q15M PRN IV For BS 50 or less Last administered on 12/02/16 00:29; Admin Dose 50 ML; Start 12/01/16 at 10:30 Dextrose 25 ml 25 ml Q15M PRN IV BS between 50-70 Last administered on 20:43; Admin Dose 25 ML; Start 12/01/16 at 10:30 Dextrose/Lactated Ringer's (D5-Lr) 1,000 ml @ 150 mls/hr Q6H40M IV Last administered on 12/02/16 05:41; Admin Dose 150 MLS/HR; Start 12/01/16 at 19:00 Hydromorphone HCl (Dilaudid) 1 mg Q4H PRN IV PAIN Last administered on 08:32; Admin Dose 1 MG; Start 12/01/16 at 20:30 Methadone HCl (Methadone) 20 mg Q8 PO ; Start 12/01/16 at 22:00; Status UNV Clonidine (Catapres) 0.1 mg Q6H PRN PO sbp > 160; Start 12/01/16 at 20:30 Diagnostic Test (Pha) (Accu-Chek) 1 ea 02 XX ; Start 12/02/16 at 02:00 Insulin Glargine (Lantus) 30 unit QHS SC Last administered on 12/01/16 21:54; Admin Dose 30 UNIT; Start 12/01/16 at 22:00 Miscellaneous Information 1 ea NOTE XX ; Start 12/01/16 at 22:00 Glucose (Glutose) 15 gm Q15M PRN PO DECREASED GLUCOSE; Start 12/01/16 at 22:00 Glucose (Glutose) 22.5 gm Q15M PRN PO DECREASED GLUCOSE; Start 12/01/16 at 22: 00 Glucagon (Glucagen) 1 mg Q15M PRN IM DECREASED GLUCOSE; Start 12/01/16 at 22:00 JOE ESTES MD Dec 02, 2016 10:10
[2016-12-02] MEDS ORDERED: ONDANSETRON (ODT) 4 MG TAB ODT PRN (10:30)
[2016-12-02] MEDS: morphine 2 MG INJ IV PRN ×2 (11:03→15:17)
[2016-12-02] MEDS: QUETIAPINE 25 MG TAB PO SCH ×3 (13:00→21:12)
[2016-12-02] MEDS: INSULIN GLARGINE [LANtus] 3 ML PEN SC SCH ×2 (21:00→21:28)
[2016-12-03] MEDS: ACCU-CHEK XX SCH ×4 (01:30→20:00)
[2016-12-03] MEDS: HYDROmorphONE 1 MG/ML SYG IV PRN ×5 (03:36→21:44)
[2016-12-03 04:00] VITALS: BP 123/73; PULSE 80
[2016-12-03] MEDS: LORAZEPAM 2 MG INJ IV PRN ×6 (04:05→21:40)
[2016-12-03 07:27] VITALS: BP 131/83; RESP 18
[2016-12-03 07:45] LABS: ADD SCAN DIFF NO
[2016-12-03 07:52] LABS: BASOPHILS % 0.2 % (0.0-2.0); EOSINOPHILS # 0.1 10^3/ul (0.0-0.5); EOSINOPHILS % 1.2 % (0.0-7.0); HEMATOCRIT 33.8 % (37.0-47.0); HEMOGLOBIN 11.5 g/dl (12.0-16.0); LYMPHOCYTES # 2.4 10^3/ul (0.8-2.9); LYMPHOCYTES % 40.1 % (15.0-51.0); MEAN CORPUSCULAR HEMOGLOBIN 30.3 pg (29.0-33.0); MEAN CORPUSCULAR VOLUME 88.9 fl (82.0-101.0); MEAN PLATELET VOLUME 8.7 fl (7.4-10.4); MONOCYTE # 0.6 10^3/ul (0.3-0.9); MONOCYTES % 9.3 % (0.0-11.0); PLATELET COUNT 185 10^3/UL (140-415); RED CELL DISTRIBUTION WIDTH 14.3 % (11.5-14.5)
[2016-12-03] MEDS: INSULIN ASPART [NOVOLOG] 3 ML PEN SC SCH ×4 (08:04→21:34)
[2016-12-03 08:10] LABS: CALCIUM 8.4 mg/dl (8.4-10.2); CREATININE 0.58 mg/dl (0.44-1.00); MAGNESIUM 1.6 mg/dl (1.7-2.5); POTASSIUM 3.2 mmol/L (3.5-5.1)
[2016-12-03] MEDS ORDERED: INSULIN ASPART [NOVOLOG] 3 ML PEN SC SCH ×6 (08:15→18:00)
[2016-12-03] MEDS: QUETIAPINE 25 MG TAB PO SCH ×3 (08:19→20:09)
[2016-12-03] MEDS: POLYETHYLENE GLYCOL 17 GM PACKET PO SCH (08:19)
[2016-12-03] MEDS: DOCUSATE SODIUM 100 MG CAP PO SCH ×2 (08:23→20:11)
[2016-12-03] MEDS ORDERED: POTASSIUM CHLORIDE (SR) 20 MEQ TAB PO STA (09:06)
[2016-12-03] MEDS ORDERED: MAGNESIUM SULFATE 2 GM/50 ML 50 ML IVPB ONE (09:30)
[2016-12-03] MEDS: morphine 2 MG INJ IV PRN ×2 (09:36→20:14)
[2016-12-03] MEDS: MUPIROCIN 2% 22 GM OINT TOP SCH ×3 (11:00→20:45)
--- NOTE | 2016-12-03 13:17 | PN ---
Date/Time of Note Date/Time of Note DATE: 12/03/16 TIME: 13:15 Assessment/Plan VTE Prophylaxis VTE Prophylaxis Intervention: SCD's Lines/Catheters IV [facility] Type (from [facility] [place] Lock Urinary Cath still in place: No Assessment/Plan Chief Complaint/Hosp Course 1. Diabetic ketoacidosis. Status post IV insulin drip. Currently on sliding scale insulin. Being followed by endocrinology. Hemoglobin A1c 8.7 2. MRSA colonization of the nares. Will start the patient on Bactroban. 3. Heroin abuse. Was undergoing detox program. The current detox facility will not take her back because of her underlying medical problems. printing table worker on the case. 4. Fluids, electrolytes, and nutrition. Carbohydrate controlled diet. 5. DVT prophylaxis. Bilateral sequential compression devices. 6. Gastrointestinal prophylaxis. Not indicated. 7. Plan. Continue sliding scale insulin as per endocrinology. Await certified social workers in health care input for placement. Replete potassium and magnesium. Case discussed with . Problems: Subjective 24 Hr Interval Summary Free Text/Dictation Complains of back pain. Denies any nausea/vomiting. Exam/Review of Systems Vital Signs Vitals Vital Signs Date Time Temp Pulse Resp B/P Pulse Ox O2 Delivery O2 Flow Rate FiO2 12/03/16 07:27 98.9 91 18 131/83 98 12/03/16 04:00 Room Air Intake and Output 12/02/16 12/02/16 12/03/16 15:00 23:00 07:00 Intake Total 200 ml 360 ml 1060 ml Output Total 650 ml 0 ml 900 ml Balance -450 ml 360 ml 160 ml Exam General: Adequately build 26 year-old female lying in bed in no apparent distress. HEENT: Normocephalic, atraumatic. Eyes: Anicteric sclerae, conjunctivae clear. ENT: Nasal septum midline, oral mucosa moist. Neck supple, no JVD noticed. Respiratory: Bilaterally clear breath sounds. No use of accessory muscles of respiration. No adventitious breath sounds. Cardiovascular: S1, S2 heard. No murmurs or gallops. Abdomen: Soft, nontender, and nondistended. Bowel sounds positive in all 4 quadrants. Genitourinary: Deferred. Extremities: No cyanosis, no clubbing, no edema. Peripheral pulses palpable. Neurologic: Cranial nerves II through XII grossly intact. The patient is awake, alert, and oriented. Skin: Normal skin turgor. No skin rashes. Results Result Diagram: 12/03/16 0700 12/03/16 0700 Results 24 hrs Laboratory Tests Test 12/02/16 17:10 12/02/16 20:05 12/02/16 21:12 12/03/16 03:27 Bedside Glucose 157 77 109 66 L Test 12/03/16 03:57 12/03/16 04:12 12/03/16 07:00 12/03/16 08:03 Bedside Glucose 100 102 105 White Blood Count 6.0 Red Blood Count 3.80 L Hemoglobin 11.5 #L Hematocrit 33.8 #L Mean Corpuscular Volume 88.9 Mean Corpuscular Hemoglobin 30.3 Mean Corpuscular Hemoglobin Concent 34.0 Red Cell Distribution Width 14.3 Platelet Count 185 # Mean Platelet Volume 8.7 Neutrophils % 49.0 Lymphocytes % 40.1 Monocytes % 9.3 Eosinophils % 1.2 Basophils % 0.2 Nucleated Red Blood Cells % 0.0 Neutrophils # 3.0 Lymphocytes # 2.4 Monocytes # 0.6 Eosinophils # 0.1 Basophils # 0.0 Nucleated Red Blood Cells # 0.0 Sodium Level 138 Potassium Level 3.2 L Chloride Level 107 Carbon Dioxide Level 25 Anion Gap 9 Blood Urea Nitrogen 14 Creatinine 0.58 Glucose Level 109 Calcium Level 8.4 Magnesium Level 1.6 L Test 12/03/16 10:16 12/03/16 12:19 Bedside Glucose 79 128 Medications Medications Current Medications Ondansetron HCl (Zofran Inj) 4 mg Q6H PRN IV NAUSEA AND/OR VOMITING Last administered on 12/01/16 18:48; Admin Dose 4 MG; Start 12/01/16 at 10:30 Morphine Sulfate (morphine) 2 mg Q4H PRN IV PAIN LEVEL 7-10 Last administered on 12/03/16 09:36; Admin Dose 2 MG; Start 12/01/16 at 10:30 Lorazepam (Ativan) 1 mg Q2H PRN IV ANXIETY Last administered on 12/03/16 08:22 ; Admin Dose 1 MG; Start 12/01/16 at 10:30 Dextrose (D50w Syringe) 50 ml Q15M PRN IV For BS 50 or less Last administered on 12/02/16 00:29; Admin Dose 50 ML; Start 12/01/16 at 10:30 Dextrose (D50w Syringe) 25 ml Q15M PRN IV BS between 50-70 Last administered on 12/01/16 20:43; Admin Dose 25 ML; Start 12/01/16 at 10:30 Hydromorphone HCl (Dilaudid) 1 mg Q4H PRN IV PAIN Last administered on 07:30; Admin Dose 1 MG; Start 12/01/16 at 20:30 Clonidine (Catapres) 0.1 mg Q6H PRN PO sbp > 160; Start 12/01/16 at 20:30 Diagnostic Test (Pha) (Accu-Chek) 1 ea 02 XX ; Start 12/02/16 at 02:00 Miscellaneous Information 1 ea NOTE XX ; Start 12/01/16 at 22:00 Glucose (Glutose) 15 gm Q15M PRN PO DECREASED GLUCOSE; Start 12/01/16 at 22:00 Glucose (Glutose) 22.5 gm Q15M PRN PO DECREASED GLUCOSE; Start 12/01/16 at 22: 00 Glucagon (Glucagen) 1 mg Q15M PRN IM DECREASED GLUCOSE; Start 12/01/16 at 22:00 Ondansetron HCl (Zofran Odt) 4 mg Q6 PRN ODT NAUSEA AND/OR VOMITING; Start at 10:30 Quetiapine Fumarate (Seroquel) 50 mg TID PO Last administered on 12/03/16 08: 19; Admin Dose 50 MG; Start 12/02/16 at 13:00 Insulin Glargine (Lantus) 20 unit QHS SC Last administered on 12/02/16 21:28; Admin Dose 20 UNIT; Start 12/02/16 at 21:30 Polyethylene Glycol (Miralax) 17 gm DAILY PO Last administered on 12/03/16 08: 19; Admin Dose 17 GM; Start 12/03/16 at 09:00 Docusate Sodium (Colace) 100 mg BID PO ; Start 12/03/16 at 09:00 Mupirocin (Bactroban) 1 applic BID TOP ; Start 12/03/16 at 11:00 FLAKO MCKOY NP Dec 03, 2016 13:17
[2016-12-03 17:21] LABS: MICROALBUMIN 21.2 mg/dL
--- NOTE | 2016-12-03 18:01 | CONS ---
Date/Time of Note Date/Time of Note DATE: 12/03/16 TIME: 17:59 Assessment/Plan Assessment/Plan Chief Complaint/Hosp Course 26-year-old female. She is now actively in withdrawal and complaining about those symptoms. DKA is better Problems: (1) Heroin withdrawal Status: Acute Comment: Patient is actively in heroin withdrawal at this time. She is otherwise medically stable. According to the notes from the social work job titles her acute detox facility is feeling a little bit under prepared to manage her. However I do not agree with the position given that she was a type I diabetic since the age of 8 and has been successfully managing for 18 years. She will be kept stable and the consideration should be made to reapproach her detox facility first thing in the morning about taking her into let her go through the withdrawal under their careful guidance as they have a set program. (2) DKA, type 1 Status: Resolved Comment: Resolved and stable Qualifiers: Diabetes mellitus complication detail: without coma Qualified Code: E10.10 - Type 1 diabetes mellitus with ketoacidosis without coma (3) Hepatitis C antibody positive in blood Status: Acute Comment: Awaiting follow-up labs (4) Diabetes mellitus type 1 Status: Chronic Comment: Adequate control on current basal bolus regimen Qualifiers: Diabetes mellitus complication status: without complication Qualified Code : E10.9 - Type 1 diabetes mellitus without complication (5) Heroin dependence Status: Chronic Consultation Date/Type/Reason Admit Date/Time Dec 01, 2016 at 10:25 Initial Consult Date 12/01/16 Type of Consultation: Endocrinology Reason for Consultation Diabetes mellitus type 1 with low-grade DKA; active heroin withdrawal Referring Provider: HEATH PRICE 24 HR Interval Summary Free Text/Dictation Patient complains of withdrawal symptoms. Exam/Review of Systems Vital Signs Vitals Vital Signs Date Time Temp Pulse Resp B/P Pulse Ox O2 Delivery O2 Flow Rate FiO2 12/03/16 07:27 98.9 91 18 131/83 98 12/03/16 04:00 Room Air Intake and Output 12/02/16 12/02/16 12/03/16 15:00 23:00 07:00 Intake Total 200 ml 360 ml 1060 ml Output Total 650 ml 0 ml 900 ml Balance -450 ml 360 ml 160 ml Exam Shaking Constitutional: alert, oriented Neck: non-tender, supple Respiratory: clear to auscultation, normal air movement Cardiovascular: nl pulses, regular rate and rhythm Results Result Diagram: 12/03/16 0700 12/03/16 0700 Results 24 hrs Laboratory Tests Test 12/02/16 20:05 12/02/16 21:12 12/03/16 03:27 12/03/16 03:57 Bedside Glucose 77 109 66 L 100 Test 12/03/16 04:12 12/03/16 07:00 12/03/16 08:03 12/03/16 10:16 Bedside Glucose 102 105 79 White Blood Count 6.0 Red Blood Count 3.80 L Hemoglobin 11.5 #L Hematocrit 33.8 #L Mean Corpuscular Volume 88.9 Mean Corpuscular Hemoglobin 30.3 Mean Corpuscular Hemoglobin Concent 34.0 Red Cell Distribution Width 14.3 Platelet Count 185 # Mean Platelet Volume 8.7 Neutrophils % 49.0 Lymphocytes % 40.1 Monocytes % 9.3 Eosinophils % 1.2 Basophils % 0.2 Nucleated Red Blood Cells % 0.0 Neutrophils # 3.0 Lymphocytes # 2.4 Monocytes # 0.6 Eosinophils # 0.1 Basophils # 0.0 Nucleated Red Blood Cells # 0.0 Sodium Level 138 Potassium Level 3.2 L Chloride Level 107 Carbon Dioxide Level 25 Anion Gap 9 Blood Urea Nitrogen 14 Creatinine 0.58 Glucose Level 109 Calcium Level 8.4 Magnesium Level 1.6 L Test 12/03/16 12:19 12/03/16 14:21 12/03/16 17:04 Bedside Glucose 128 88 197 Medications Medications Current Medications Ondansetron HCl (Zofran Inj) 4 mg Q6H PRN IV NAUSEA AND/OR VOMITING Last administered on 12/01/16 18:48; Admin Dose 4 MG; Start 12/01/16 at 10:30 Morphine Sulfate (morphine) 2 mg Q4H PRN IV PAIN LEVEL 7-10 Last administered on 12/03/16 09:36; Admin Dose 2 MG; Start 12/01/16 at 10:30 Lorazepam (Ativan) 1 mg Q2H PRN IV ANXIETY Last administered on 12/03/16 16:51 ; Admin Dose 1 MG; Start 12/01/16 at 10:30 Dextrose (D50w Syringe) 50 ml Q15M PRN IV For BS 50 or less Last administered on 12/02/16 00:29; Admin Dose 50 ML; Start 12/01/16 at 10:30 Dextrose (D50w Syringe) 25 ml Q15M PRN IV BS between 50-70 Last administered on 12/01/16 20:43; Admin Dose 25 ML; Start 12/01/16 at 10:30 Hydromorphone HCl (Dilaudid) 1 mg Q4H PRN IV PAIN Last administered on 17:54; Admin Dose 1 MG; Start 12/01/16 at 20:30 Clonidine (Catapres) 0.1 mg Q6H PRN PO sbp > 160; Start 12/01/16 at 20:30 Diagnostic Test (Pha) (Accu-Chek) 1 ea 02 XX ; Start 12/02/16 at 02:00 Miscellaneous Information 1 ea NOTE XX ; Start 12/01/16 at 22:00 Glucose (Glutose) 15 gm Q15M PRN PO DECREASED GLUCOSE; Start 12/01/16 at 22:00 Glucose (Glutose) 22.5 gm Q15M PRN PO DECREASED GLUCOSE; Start 12/01/16 at 22: 00 Glucagon (Glucagen) 1 mg Q15M PRN IM DECREASED GLUCOSE; Start 12/01/16 at 22:00 Ondansetron HCl (Zofran Odt) 4 mg Q6 PRN ODT NAUSEA AND/OR VOMITING; Start at 10:30 Quetiapine Fumarate (Seroquel) 50 mg TID PO Last administered on 12/03/16 12: 21; Admin Dose 50 MG; Start 12/02/16 at 13:00 Insulin Glargine (Lantus) 20 unit QHS SC Last administered on 12/02/16 21:28; Admin Dose 20 UNIT; Start 12/02/16 at 21:30 Polyethylene Glycol (Miralax) 17 gm DAILY PO Last administered on 12/03/16 08: 19; Admin Dose 17 GM; Start 12/03/16 at 09:00 Docusate Sodium (Colace) 100 mg BID PO ; Start 12/03/16 at 09:00 Mupirocin (Bactroban) 1 applic BID TOP Last administered on 12/03/16 17:03; Admin Dose 1 APPLIC; Start 12/03/16 at 11:00 EULALIO LERNER MD Dec 03, 2016 18:01
[2016-12-03 19:53] VITALS: BP 171/95; RESP 18
[2016-12-03] MEDS: NICOTINE (21 MG/24 HR) PATCH TRANSDERM SCH (21:24)
[2016-12-03 21:30] VITALS: BP 132/88; PULSE 81
[2016-12-03] MEDS: INSULIN GLARGINE [LANtus] 3 ML PEN SC SCH (21:35)
[2016-12-03] MEDS ORDERED: INSULIN GLARGINE [LANtus] 3 ML PEN SC ONE (22:00)
[2016-12-04] MEDS: ACCU-CHEK XX SCH ×3 (02:20→13:24)
[2016-12-04] MEDS: HYDROmorphONE 1 MG/ML SYG IV PRN ×2 (02:31→06:31)
[2016-12-04] MEDS: LORAZEPAM 2 MG INJ IV PRN ×4 (02:32→12:19)
[2016-12-04 08:02] LABS: ADD SCAN DIFF NO
[2016-12-04] MEDS: QUETIAPINE 25 MG TAB PO SCH ×2 (08:04→13:21)
[2016-12-04] MEDS: NICOTINE (21 MG/24 HR) PATCH TRANSDERM SCH (08:04)
[2016-12-04] MEDS: POLYETHYLENE GLYCOL 17 GM PACKET PO SCH ×3 (08:04→09:00)
[2016-12-04] MEDS: DOCUSATE SODIUM 100 MG CAP PO SCH (08:04)
[2016-12-04] MEDS: MUPIROCIN 2% 22 GM OINT TOP SCH (08:05)
[2016-12-04] MEDS: INSULIN ASPART [NOVOLOG] 3 ML PEN SC SCH ×2 (08:06→12:15)
[2016-12-04 08:09] VITALS: BP 128/82; RESP 20
[2016-12-04 08:12] LABS: BASOPHILS % 0.3 % (0.0-2.0); EOSINOPHILS # 0.1 10^3/ul (0.0-0.5); EOSINOPHILS % 0.6 % (0.0-7.0); HEMOGLOBIN 11.6 g/dl (12.0-16.0); LYMPHOCYTES # 1.6 10^3/ul (0.8-2.9); LYMPHOCYTES % 19.6 % (15.0-51.0); MEAN CORPUSCULAR HEMOGLOBIN 30.4 pg (29.0-33.0); MEAN CORPUSCULAR HGB CONC 35.2 g/dl (32.0-37.0); MEAN CORPUSCULAR VOLUME 86.6 fl (82.0-101.0); MEAN PLATELET VOLUME 8.8 fl (7.4-10.4); MONOCYTE # 0.6 10^3/ul (0.3-0.9); MONOCYTES % 7.5 % (0.0-11.0); NEUTROPHIL # 5.7 10^3/ul (1.6-7.5); NEUTROPHILS % 71.7 % (39.0-77.0); PLATELET COUNT 156 10^3/UL (140-415); RED BLOOD COUNT 3.81 10^6/ul (4.20-5.40)
[2016-12-04] MEDS ORDERED: INSULIN ASPART [NOVOLOG] 3 ML PEN SC SCH ×3 (08:15→18:00)
[2016-12-04 09:01] LABS: MAGNESIUM 1.6 mg/dl (1.7-2.5)
[2016-12-04 09:21] LABS: CALCIUM 9.1 mg/dl (8.4-10.2); CREATININE 0.5 mg/dl (0.44-1.00); POTASSIUM 3.5 mmol/L (3.5-5.1)
[2016-12-04] MEDS ORDERED: HYDROmorphONE 1 MG/ML SYG IV STA (09:33)
--- NOTE | 2016-12-04 12:52 | CONS ---
Date/Time of Note Date/Time of Note DATE: 12/04/16 TIME: 12:46 Assessment/Plan Assessment/Plan Chief Complaint/Hosp Course 26-year-old female. Withdrawal has been aborted. Problems: (1) Diabetes mellitus type 1 Status: Chronic Comment: Patient has been taking some extra foodstuffs. In addition we had a hypoglycemia overnight from the patient having been given slightly aggressive correction factor. At this time she is adequately stabilized for going to a detox center. Qualifiers: Diabetes mellitus complication status: without complication Qualified Code : E10.9 - Type 1 diabetes mellitus without complication (2) Heroin dependence Status: Chronic Comment: She is no longer in withdrawal because she has been receiving Dilaudid and morphine IV. Please note I vigorously disagree with this. Pain management has been consulted I will defer off to them (3) Heroin withdrawal Status: Acute Comment: As above. She is not in withdrawal because she has opiates in her system (4) Hepatitis C antibody positive in blood Status: Acute Comment: Noted. Blood and body fluid precautions (5) MRSA nasal colonization Status: Acute Comment: Noted. Consultation Date/Type/Reason Admit Date/Time Dec 01, 2016 at 10:25 Initial Consult Date 12/01/16 Type of Consultation: Endocrinology Reason for Consultation Diabetes mellitus type 1 Referring Provider: HEATH PRICE 24 HR Interval Summary Free Text/Dictation Patient requests to continue receiving morphine and Dilaudid and Ativan every 2 hours. Patient wants to go back to the detox center. Exam/Review of Systems Vital Signs Vitals Vital Signs Date Time Temp Pulse Resp B/P Pulse Ox O2 Delivery O2 Flow Rate FiO2 12/04/16 08:09 98.5 100 20 128/82 93 12/03/16 04:00 Room Air Intake and Output 12/03/16 12/03/16 12/04/16 15:00 23:00 07:00 Intake Total 50 ml 1200 ml 1340 ml Output Total 600 ml 2100 ml Balance 50 ml 600 ml -760 ml Exam Patient easily ambulating around her room and in the hallways. Constitutional: alert, oriented Respiratory: clear to auscultation, normal air movement Results Result Diagram: 12/04/16 0730 12/04/16 0730 Results 24 hrs Laboratory Tests Test 12/03/16 14:21 12/03/16 17:04 12/03/16 19:58 12/03/16 21:22 Bedside Glucose 88 197 330 H 312 H Test 12/03/16 22:27 12/04/16 02:19 12/04/16 02:37 12/04/16 02:59 Bedside Glucose 276 H 47 *L 61 L 109 Test 12/04/16 03:16 12/04/16 04:28 12/04/16 07:30 12/04/16 07:58 Bedside Glucose 137 132 117 White Blood Count 8.0 # Red Blood Count 3.81 L Hemoglobin 11.6 L Hematocrit 33.0 L Mean Corpuscular Volume 86.6 Mean Corpuscular Hemoglobin 30.4 Mean Corpuscular Hemoglobin Concent 35.2 Red Cell Distribution Width 14.0 Platelet Count 156 Mean Platelet Volume 8.8 Neutrophils % 71.7 Lymphocytes % 19.6 Monocytes % 7.5 Eosinophils % 0.6 Basophils % 0.3 Nucleated Red Blood Cells % 0.0 Neutrophils # 5.7 Lymphocytes # 1.6 Monocytes # 0.6 Eosinophils # 0.1 Basophils # 0.0 Nucleated Red Blood Cells # 0.0 Sodium Level 137 Potassium Level 3.5 Chloride Level 102 Carbon Dioxide Level 27 Anion Gap 12 Blood Urea Nitrogen 12 Creatinine 0.50 Glucose Level 100 Calcium Level 9.1 Phosphorus Level 4.0 Magnesium Level 1.6 L Test 12/04/16 10:03 12/04/16 12:04 Bedside Glucose 229 H 339 H Medications Medications Current Medications Ondansetron HCl (Zofran Inj) 4 mg Q6H PRN IV NAUSEA AND/OR VOMITING Last administered on 12/01/16 18:48; Admin Dose 4 MG; Start 12/01/16 at 10:30 Dextrose (D50w Syringe) 50 ml Q15M PRN IV For BS 50 or less Last administered on 12/02/16 00:29; Admin Dose 50 ML; Start 12/01/16 at 10:30 Dextrose (D50w Syringe) 25 ml Q15M PRN IV BS between 50-70 Last administered on 12/01/16 20:43; Admin Dose 25 ML; Start 12/01/16 at 10:30 Clonidine (Catapres) 0.1 mg Q6H PRN PO sbp > 160; Start 12/01/16 at 20:30 Diagnostic Test (Pha) (Accu-Chek) 1 ea 02 XX Last administered on 12/04/16 02: 20; Admin Dose 1 EA; Start 12/02/16 at 02:00 Miscellaneous Information 1 ea NOTE XX ; Start 12/01/16 at 22:00 Glucose (Glutose) 15 gm Q15M PRN PO DECREASED GLUCOSE; Start 12/01/16 at 22:00 Glucose (Glutose) 22.5 gm Q15M PRN PO DECREASED GLUCOSE; Start 12/01/16 at 22: 00 Glucagon (Glucagen) 1 mg Q15M PRN IM DECREASED GLUCOSE; Start 12/01/16 at 22:00 Ondansetron HCl (Zofran Odt) 4 mg Q6 PRN ODT NAUSEA AND/OR VOMITING; Start at 10:30 Quetiapine Fumarate (Seroquel) 50 mg TID PO Last administered on 12/04/16 08: 04; Admin Dose 50 MG; Start 12/02/16 at 13:00 Polyethylene Glycol (Miralax) 17 gm DAILY PO Last administered on 12/03/16 08: 19; Admin Dose 17 GM; Start 12/03/16 at 09:00 Docusate Sodium (Colace) 100 mg BID PO Last administered on 12/04/16 08:04; Admin Dose 100 MG; Start 12/03/16 at 09:00 Mupirocin (Bactroban) 1 applic BID TOP Last administered on 12/04/16 08:05; Admin Dose 1 APPLIC; Start 12/03/16 at 11:00 Nicotine (Nicoderm 21 Mg/ 24hr) 1 patch DAILY TRANSDERM Last administered on 08:04; Admin Dose 1 PATCH; Start 12/03/16 at 21:00 Insulin Glargine (Lantus) 25 unit QHS SC ; Start 12/04/16 at 21:00 Lorazepam (Ativan) 1 mg Q6 PRN IV ANXIETY; Start 12/04/16 at 18:00; Status UNV Gabapentin (Neurontin) 400 mg TID PO ; Start 12/04/16 at 13:00; Status UNV EULALIO LERNER MD Dec 04, 2016 12:51
[2016-12-04] MEDS ORDERED: GABAPENTIN 400 MG CAP PO SCH (13:00)
[2016-12-04] MEDS ORDERED: LORAZEPAM 1 MG TAB PO PRN (13:00)
--- NOTE | 2016-12-04 16:46 | DS ---
Date/Time of Note Date/Time of Note DATE: 12/04/16 TIME: 16:44 Discharge Summary Admission/Discharge Info Admit Date/Time Dec 01, 2016 at 10:25 Discharge Date/Time Dec 04, 2016 at 15:15 Discharge Diagnosis 1. Diabetic ketoacidosis. 2. MRSA colonization of the nares. 3. Type 1 diabetes mellitus. 4. Heroin abuse. Patient Condition: Fair Consults 1. Katie Pelayo MD, Endocrinology. Hx of Present Illness The patient is a 26-year-old female with a history of diabetes and heroin abuse , currently was at a detox facility for 1 day. She came to the emergency room because of gradual onset of intermittent vomiting that has been going on for 1-1 -1/2 days. When she presented to the ER, she was tachycardic, and her laboratory values showed low bicarbonate 18, anion gap of 32 with positive serum ketones. The patient was started on DKA protocol. She actually has already been seen by Dr. Pelayo from Endocrinology in the ER. She denied any chest pain. However, she has had generalized weakness and pain. The patient was transferred to intensive care unit for further management. Hospital Course The patient was maintained on insulin IV as per DKA protocol. The patient's IV insulin was discontinued once she came out of DKA. The patient has underlying type 1 diabetes mellitus. The patient was noticed to have a hemoglobin A1c of 8.7. The patient's insulin dosing was managed by endocrinology. The patient had no evidence of any underlying infectious process. The patient's DKA could have a most probably secondary to poor insulin compliance. The patient was in a detox facility for heroin abuse. Social work was involved on the case. scruff worker called and spoke with the detox facility whether the patient can be taken back. However, the patient's medical condition was too complicated for the detox facility to handle. Finally, the facility agreed to take the patient back if her blood sugars are well controlled in the low 100s. The patient was also noticed to have MRSA colonization of the nares. Consequently, the patient was started on Bactroban to the nares. Meanwhile, the patient has been very agitated and asking for pain medications [id number]. She was verbally abusive and noncompliant with instructions from nursing personnel. The patient decided to leave the hospital AGAINST MEDICAL ADVICE. She was instructed on the consequences of leaving the hospital AGAINST MEDICAL ADVICE including the possibility of . Nevertheless, she left the hospital AGAINST MEDICAL ADVICE after signing the AMA form. No discharge planning was done and no prescriptions were given since the patient left the hospital AGAINST MEDICAL ADVICE. Case discussed with . Home Meds Active Scripts Ondansetron (Zofran Odt) 4 Mg Tab.rapdis, 4 MG PO Q6, #14 Prov:EULALIO DE PAZ DO 12/01/16 Reported Medications Buprenorphine Hcl-Naloxone Hcl (Suboxone SL) 8-2 Mg Film, 1 FILM SL DAILY, FILM 12/01/16 Quetiapine Fumarate* (Seroquel*) 50 Mg Tablet, 50 MG PO TID, TAB 12/01/16 Clonidine Hcl* (Clonidine Hcl*) 0.2 Mg Tablet, 0.2 MG PO TID, TAB 12/01/16 Follow-up Plan No follow-up plan was done since the patient left the hospital AGAINST MEDICAL ADVICE. Primary Care Provider Care Physician No Primary Time spent on discharge: < 30 minutes Pending Labs Laboratory Tests Test 12/03/16 17:04 12/03/16 19:58 12/03/16 21:22 12/03/16 22:27 Bedside Glucose 197mg/dL (70-220) 330mg/dL (70-220) 312mg/dL (70-220) 276mg/dL (70-220) Test 12/04/16 02:19 12/04/16 02:37 12/04/16 02:59 12/04/16 03:16 Bedside Glucose 47mg/dL (70-220) 61mg/dL (70-220) 109mg/dL (70-220) 137mg/dL (70-220) Test 12/04/16 04:28 12/04/16 07:30 12/04/16 07:58 12/04/16 10:03 Bedside Glucose 132mg/dL (70-220) 117mg/dL (70-220) 229mg/dL (70-220) White Blood Count 8.010^3/ul (4.8-10.8) Red Blood Count 3.8110^6/ul (4.20-5.40) Hemoglobin 11.6g/dl (12.0-16.0) Hematocrit 33.0% (37.0-47.0) Mean Corpuscular Volume 86.6fl (82.0-101.0) Mean Corpuscular Hemoglobin 30.4pg (29.0-33.0) Mean Corpuscular Hemoglobin Concent 35.2g/dl (32.0-37.0) Red Cell Distribution Width 14.0% (11.5-14.5) Platelet Count 76683^3/UL (140-415) Mean Platelet Volume 8.8fl (7.4-10.4) Neutrophils % 71.7% (39.0-77.0) Lymphocytes % 19.6% (15.0-51.0) Monocytes % 7.5% (0.0-11.0) Eosinophils % 0.6% (0.0-7.0) Basophils % 0.3% (0.0-2.0) Nucleated Red Blood Cells % 0.0/100WBC (0.0-0.0) Neutrophils # 5.710^3/ul (1.6-7.5) Lymphocytes # 1.610^3/ul (0.8-2.9) Monocytes # 0.610^3/ul (0.3-0.9) Eosinophils # 0.110^3/ul (0.0-0.5) Basophils # 0.010^3/ul (0.0-0.1) Nucleated Red Blood Cells # 0.010^3/ul (0.0-0.0) Sodium Level 137mmol/L (135-144) Potassium Level 3.5mmol/L (3.5-5.1) Chloride Level 102mmol/L (97-110) Carbon Dioxide Level 27mmol/L (21-31) Anion Gap 12 (8-16) Blood Urea Nitrogen 12mg/dl (7-20) Creatinine 0.50mg/dl (0.44-1.00) Glucose Level 100mg/dl (70-220) Calcium Level 9.1mg/dl (8.4-10.2) Phosphorus Level 4.0mg/dl (2.5-4.9) Magnesium Level 1.6mg/dl (1.7-2.5) Test 12/04/16 12:04 12/04/16 13:23 12/04/16 13:57 Bedside Glucose 339mg/dL (70-220) 263mg/dL (70-220) 191mg/dL (70-220) FLAKO MCKOY NP Dec 04, 2016 16:46
[2016-12-04] MEDS ORDERED: INSULIN GLARGINE [LANtus] 3 ML PEN SC SCH (21:00)
== END 2016-12-04 15:15 | disposition left against medical advice (07) | DRG 638 ==
LOC: E/R 04:02 → ICU 10:25 → MS2 12-02 12:01
PROVIDERS: ADMIT Internal Medicine; ATTEND Internal Medicine
DX: E10.10 Type 1 diabetes mellitus with ketoacidosis without coma (principal); F11.23 Opioid dependence with withdrawal; E87.5 Hyperkalemia; R76.8 Other specified abnormal immunological findings in serum; Z22.322 Carrier or suspected carrier of Methicillin resistant Staphylococcus aureus
CPT/HCPCS: 36415; 80048; 80053; 80307; 81001; 81003; 82010; 82043; 82962; 83036; 83605; 83690; 83735; 84100; 84703; 85025; 86592; 86803; 87081; 87340; 96361; 96365; 96366; 96372; 96375; 96376; J1170; J1815; J1885; J2060; J2270; J2405; J2765; J3250; J3475; J3480; J7030; J7120; J7121